=== PATIENT | female | born 1980 | race American Indian/Alaskan Native ===

== ENCOUNTER 2019-11-10 16:42 | Emergency (ER) | payer MEDICARE ==
--- NOTE | 2019-11-10 20:53 | Emergency Department Report ---
ED Psych HPI - General Chief Complaint: Psych Stated Complaint: ANIXIETY Time Seen by Provider: 11/10/19 20:50 Source: patient, family Mode of arrival: Ambulatory Limitations: No Limitations - History of Present Illness Initial Comments: Patient is a 39-year-old female that presents emergency room with racing thoughts. Patient states she is trying to get her breastmilk fixed and at [place] [employer]. Patient states she had a panic attack and she started sending money to people on Facebook. Patient states that her thoughts are all over the place. Patient denies suicidal homicidal ideation. Patient states she has not slept for 4 days because she cannot stop the thoughts. Family states that the patient has been having manic behaviors. Patient states that she is been acting strange. Patient's family states she has not slept for 4 days. MD Complaint: feels depressed, altered mental status -: Sudden Associated Psychiatric Symptoms: racing thoughts History of same: Yes Quality: constant Improves With: none Worsens With: none Context: significant life stressor Associated Symptoms: denies: confusion, headache, shortness of breath, nausea, vomiting, syncope, insomnia - Related Data Allergies Allergy/AdvReac Type Severity Reaction Status Date / Time paroxetine [From Paxil] AdvReac Unknown Verified 11/10/19 20:10 risperidone [From Risperdal] AdvReac Unknown Verified 11/10/19 20:10 ED Review of Systems ROS: Stated complaint: ANIXIETY Other details as noted in HPI Constitutional: denies: chills, fever Eyes: denies: eye pain, eye discharge, vision change ENT: denies: ear pain, throat pain Respiratory: denies: cough, shortness of breath, wheezing Cardiovascular: denies: chest pain, palpitations Endocrine: no symptoms reported Gastrointestinal: denies: abdominal pain, nausea, diarrhea Genitourinary: denies: urgency, dysuria, discharge Musculoskeletal: denies: back pain, joint swelling, arthralgia Skin: denies: rash, lesions Neurological: denies: headache, weakness, paresthesias Psychiatric: denies: anxiety, depression, auditory hallucinations, visual hallucinations, homicidal thoughts, suicidal thoughts Hematological/Lymphatic: denies: easy bleeding, easy bruising ED Past Medical Hx - Past Medical History Previous Medical History?: Yes Hx Psychiatric Treatment: Yes (Schizo affective/bi polar) - Surgical History Past Surgical History?: No - Family History Family history: no significant - Social History Smoking Status: Never Smoker Substance Use Type: None ED Physical Exam - General Limitations: No Limitations General appearance: alert, in no apparent distress - Head Head exam: Present: atraumatic, normocephalic - Eye Eye exam: Present: normal appearance - ENT ENT exam: Present: mucous membranes moist - Neck Neck exam: Present: normal inspection - Respiratory Respiratory exam: Present: normal lung sounds bilaterally. Absent: respiratory distress - Cardiovascular Cardiovascular Exam: Present: regular rate, normal rhythm. Absent: systolic murmur, diastolic murmur, rubs, gallop - GI/Abdominal GI/Abdominal exam: Present: soft, normal bowel sounds - Extremities Exam Extremities exam: Present: normal inspection - Back Exam Back exam: Present: normal inspection - Neurological Exam Neurological exam: Present: alert, oriented X3 - Psychiatric Psychiatric exam: Present: anxious, manic - Expanded Psychiatric Exam Expanded Focused psych exam: Present: pressured speech, restlessness, flight of ideas, loose associations - Skin Skin exam: Present: warm, dry, intact, normal color. Absent: rash ED Course Vital Signs 11/10/19 20:45 Temperature 98.5 F Pulse Rate 90 Respiratory 18 Rate Blood Pressure 141/81 [Left] O2 Sat by Pulse 98 Oximetry - Reevaluation(s) Reevaluation #1: Patient placed on a ER hold. 11/10/19 20:52 Reevaluation #2: Patient is medically cleared. Patient will remain in the ER until she is displayed by our mental health and psychiatry team. I discussed all results and clinical findings with patient. I discussed plan of care with patient. Patient agrees with plan of care. 11/10/19 23:45 ED Medical Decision Making - Lab Data Result diagrams: 11/10/19 20:35 11/10/19 20:35 - Medical Decision Making Patient is a 39-year-old female that presented for medical clearance for psychiatric condition. Patient found to have kami and acute psychosis. Patient placed on a ER hold. Patient had labs done which were essentially unremarkable. Patient is medically cleared and final disposition will come from our mental health and psychiatry team. - Differential Diagnosis Anxiety, kami, acute psychosis. Critical care attestation.: If time is entered above; I have spent that time in minutes in the direct care of this critically ill patient, excluding procedure time. ED Disposition Clinical Impression: Anxiety, Kami, Acute psychosis Is pt being admited?: No Does the pt Need Aspirin: No Condition: Stable Referrals: PRIMARY CARE, [Primary Care Provider] - 3-5 Days Time of Disposition: 23:45
[2019-11-10 21:13] LABS: Basophils # (Auto) 0.1 K/mm3 (0.0-0.1); Basophils % (Auto) 0.5 % (0.0-1.8); Eosinophils # (Auto) 0.1 K/mm3 (0.0-0.4); Eosinophils % (Auto) 1.3 % (0.0-4.3); Hematocrit 37.3 % (30.3-42.9); Hemoglobin 12.2 gm/dl (10.1-14.3); Lymphocytes # (Auto) 2.1 K/mm3 (1.2-5.4); Lymphocytes % (Auto) 20.6 % (13.4-35.0); Mean Corpuscular HGB Conc 33 % (30-34); Mean Corpuscular Volume 87 fl (79-97); Monocytes # (Auto) 0.9 K/mm3 (0.0-0.8); Monocytes % (Auto) 8.6 % (0.0-7.3); Platelet Count 290 K/mm3 (140-440); Red Blood Count 4.29 M/mm3 (3.65-5.03); Red Cell Distribution Width 12.4 % (13.2-15.2)
[2019-11-10 21:25] LABS: BUN/Creatinine Ratio 13; Blood Urea Nitrogen 8 mg/dL (7-17); Calcium 9.9 mg/dL (8.4-10.2); Hemolysis Index 3
[2019-11-10 22:31] LABS: Bilirubin,Urine NEG (Negative); Blood,Urine NEG (Negative); Color,Urine Straw (Yellow); Protein,Urine <15 mg/dL mg/dL (Negative); Urobilinogen,Urine < 2.0 mg/dL (<2.0); WBC,Urine < 1.0 /HPF (0.0-6.0)
[2019-11-10 22:39] LABS: Amphetamine Screen,Urine PRESUMPTIVE NEGATIVE; Benzodiazepines Screen,Urine PRESUMPTIVE NEGATIVE; Cannabinoid Screen,Urine PRESUMPTIVE NEGATIVE; Cocaine Screen,Urine PRESUMPTIVE NEGATIVE; Methadone Screen,Urine PRESUMPTIVE NEGATIVE; Opiate Screen,Urine PRESUMPTIVE NEGATIVE
[2019-11-11 09:47] LABS: HCG Qualitative,Urine Negative (Negative)
[2019-11-11 09:52] VITALS: BP 129/71
== END 2019-11-11 13:41 ==
LOC: ED 16:42 → EEVIPCON 16:42 → ED 11-11 13:41
DX: F30.8 Other manic episodes (principal); F41.9 Anxiety disorder, unspecified; F23 Brief psychotic disorder; F25.8 Other schizoaffective disorders; Z88.8 Allergy status to other drugs, medicaments and biological substances; Z79.899 Other long term (current) drug therapy
CPT/HCPCS: 36415; 80048; 80307; 80320; 81001; 81025; 85025; G0480